=== PATIENT | male | born 1985 | race Caucasian/White ===

== ENCOUNTER 2020-08-11 09:11 | Outpatient (CLI) | payer OTHER, SELFPAY ==
--- NOTE | 2020-08-11 09:27 | USCV_ITS ---
Dilip Diaz Age: 34 Gender: M : 1985 Exam Date: 08/11/2020 09:21 Ordering Phys: Lauri Crowell Technologist: Exam Location: [facility] – [place] Indication: [place] IN EXTREMITIES RIGHT LEFT Brachial 133.00 mmHg Brachial 125.00 mmHg Pressure (mmHg) Waveform Pressure (mmHg) Waveform 164.00 [employer] 170.00 139.00 DPA 158.00 1.23 Ankle/Brachial Index 1.28 165.00 Pre-Exercise Toe Pressure 105.00 1.24 Pre-Exercise Toe/Brachial Index 0.79 FINDINGS Normal resting ABIs bilaterally Normal resting TBIs bilaterally CONCLUSIONS No evidence of any significant arterial obstruction, based on the above findings. Dr Keesha Corona MD [facility] (Electronically Signed) Final Date: 15 Aug 2020 11:32 S
== END 2020-08-11 09:12 | disposition home or self-care (01) ==
LOC: RAD 09:17
PROVIDERS: Visit Provider Clinical Nurse Specialist Adult Health
DX: R20.2 Paresthesia of skin (principal)
CPT/HCPCS: 93922

== ENCOUNTER 2021-04-17 15:22 | Outpatient (CLI) | payer OTHER, SELFPAY ==
--- NOTE | 2021-04-17 15:29 | XR_ITS ---
WS: [id number] LUMBAR SPINE TECHNIQUE: 5 views of the lumbar spine CLINICAL INFORMATION: ACUTE BILATERAL LOWER BACK PAIN W/O SCIATA COMPARISON: None. FINDINGS: Five [id number] lumbar vertebral bodies. Minimal lumbar curve convex left. Mild facet arthropath y L4-L5 and L5-S1. Mild disc space narrowing L4-L5 and L5-S1. Mild chronic anterior wedging at T11 an d T12. No acute appearing compression fractures. XR/XR lumbar spine min 4V [id number] IMPRESSION: No acute lumbar spine findings.
--- NOTE | 2021-04-17 15:29 | XR_ITS ---
WS: [id number] HIP WITH PELVIS LEFT TECHNIQUE: 3 views of the left hip with pelvis CLINICAL INFORMATION: L HIP PAIN COMPARISON: None. FINDINGS: Left hip is normal in appearance. No acute fractures. Normal femoral neck. Normal proximal femoral sh aft. Normal visualized left pubic rami. XR/XR hip LT 2-3V wo/w pel* [id number] IMPRESSION: Normal left hip Tonnis classification: grade 0: normal radiographs
--- NOTE | 2021-04-17 15:29 | XR_ITS ---
WS: [id number] SHOULDER LEFT TECHNIQUE: 3 views of the left shoulder CLINICAL INFORMATION: ACUTE PAIN OF L SHOULDER COMPARISON: None. FINDINGS: Normal acromioclavicular joint. Normal glenohumeral joint. Acromion is normal in appearance. Normal g lenoid. No evidence of acute fracture dislocation. XR/XR shoulder LT min 2V* [id number] IMPRESSION: Normal left shoulder.
== END 2021-04-17 15:23 | disposition home or self-care (01) ==
PROVIDERS: PCP Nurse Practitioner Family; Visit Provider Nurse Practitioner Family
DX: M25.512 Pain in left shoulder (principal); M54.50 Low back pain, unspecified; M25.552 Pain in left hip
CPT/HCPCS: 72110; 73030; 73502

== ENCOUNTER 2021-12-06 11:44 | Outpatient (CLI) | payer OTHER, SELFPAY ==
--- NOTE | 2021-12-06 12:15 | MR_ITS ---
WS: [id number] MRI CERVICAL SPINE NONCONTRAST HISTORY: ACUTE CERVICAL STRAIN COMPARISON: 02/25/2015 Technique: Multiplanar, multisequence noncontrast imaging of the cervical spine. Straightening reversal normal cervical lordosis. Reversal centered at C4-5. Reversal is new since 201 5. No acute fractures or marrow edema. Mild disc space narrowing and desiccation at C4-5, C5-6 and C6 -7. Signal within the cervical cord is normal. Visualized posterior fossa is unremarkable. Craniocervical junction, C1 and C2 relationship, odontoid process and soft tissues are normal. C2-C3: Normal. C3-C4: Annular disc bulging and very mild osteophytic ridging. Central disc protrusion with annular f issure. Mild encroachment upon the ventral thecal sac but no stenosis. C4-C5: Focal central and LEFT foraminal disc protrusions. Contact on the ventral thecal sac with mild deformity. Mild central and LEFT foraminal stenosis. Disc protrusion and stenosis have increased sin ce 2014. C5-C6: Central to LEFT paracentral disc protrusion with osteophytic ridging and annular disc bulging. Progression of disc disease and encroachment upon the thecal sac. Disc contacts the LEFT lateral the brad sac and causes posterior displacement of the nerve roots in the LEFT foramen. Moderate stenosis c entral canal and LEFT foramen. C6-C7: Normal. C7-T1: Normal. Paraspinal soft tissue are normal. MR/MR cervical spin wo con* [id number] IMPRESSION: 1. New reversal of the normal cervical lordosis centered at C4-5. 2. Progression of disc and osteophyte disease at C5-6. Moderate size central a nd LEFT paracentral disc protrusions impinge upon and displacing the LEFT later al cervical cord and nerve roots. There is moderate stenosis centrally and with in the LEFT foramen. 3. Mild central LEFT foraminal stenosis at C4-5 due to a central and LEFT fora shasta disc protrusion. Mild progression of the disc protrusions and stenosis si nce 2014. 4. Small central disc protrusion at C3-4. No stenosis.
== END 2021-12-06 11:45 | disposition home or self-care (01) ==
LOC: RAD 11:49
PROVIDERS: Visit Provider Orthopaedic Surgery
DX: S16.1XXA Strain of muscle, fascia and tendon at neck level, initial encounter (principal); X58.XXXA Exposure to other specified factors, initial encounter; M50.21 Other cervical disc displacement, high cervical region; M48.02 Spinal stenosis, cervical region; M25.78 Osteophyte, vertebrae
CPT/HCPCS: 72141